=== PATIENT | female | born 1980 | race Native Hawaiian/Other Pacific Islander ===

== ENCOUNTER 2022-04-16 14:58 | Emergency (ER) | payer OTHER ==
[~2022-04-16] VITALS: Ht 160 cm; Wt 141.5 kg
[~2022-04-16 14:58] MED LIST: AEROECLIPSE II1 EACH MC; ALBU90OI INH; ALBU90OI61 INH; AZIT250 PO; BUDE10.22; Citalopram HBr40 MG PO; DELTASONE20 MG PO; DILT120 PO; HYDACE5 PO; LORA1 PO; MEDR10 PO; Mucinex1200 MG PO; NAPR500 PO; PRED10 PO; Prednisone20 MG PO; Ventolin Soln3 ML INH; Zithromax250 MG PO
[2022-04-16] MEDS ORDERED: OXYCODONE-ACET1 EAC3 PO (16:04)
[2022-04-16] MEDS ORDERED: WIXELA 250-501 EAC1 INH (16:05)
[2022-04-16] MEDS ORDERED: IBUP800 PO (16:13)
[2022-04-16] MEDS ORDERED: BUDESONIDE-FO10.2 G3 INH (16:13)
[2022-04-16] MEDS ORDERED: VITAMIN D5000 UNIT PO (16:14)
[2022-04-16] MEDS ORDERED: DOCU100 PO (16:15)
[2022-04-16] MEDS ORDERED: DULERA 100 MCG/13 GM INH (16:15)
[2022-04-16] MEDS ORDERED: OLANZAPINE-FLU1 EAC8 PO (16:16)
[2022-04-16] MEDS ORDERED: MONT10T PO (16:16)
[2022-04-16 16:30] LABS: BASOPHILS ABSOLUTE AUTO 0.04 K/mm3 (0.00-0.23); BASOPHILS PERCENT AUTO 0 % (0-2); EOSINOPHILS PERCENT AUTO 1 % (0-6); Hematocrit 34.5 % (33.0-51.0); Hemoglobin 11.4 g/dL (11.5-16.0); IMMATURE GRAN ABSOLUTE AUTO 0.04 K/mm3 (0.00-0.10); IMMATURE GRAN PERCENT AUTO 0 % (0-1); LYMPHOCYTES ABSOLUTE AUTO 3.15 K/mm3 (0.84-5.20); LYMPHOCYTES PERCENT AUTO 26 % (21-46); MONOCYTES ABSOLUTE AUTO 1.27 K/mm3 (0.16-1.47); MONOCYTES PERCENT AUTO 11 % (4-13); Mean Corpuscular HGB 31.8 pg (26.0-34.0); Mean Corpuscular Volume 96 fL (80-100); Mean Platelet Volume 9.4 fL (9.1-12.4); NEUTROPHILS ABSOLUTE AUTO 7.46 K/mm3 (1.96-9.15); NEUTROPHILS PERCENT AUTO 62 % (41-73); Platelet Count 338 K/mm3 (150-400); RDW Coefficient Variation 12.2 % (11.7-14.2); RDW Standard Deviation 43.1 fL (35.1-46.3); Red Blood Cell Count 3.58 M/mm3 (3.80-5.20); White Blood Cell Count 12.06 K/mm3 (4.00-11.30)
[2022-04-16 16:38] LABS: Bun/Creatinine Ratio 14.2 (12.0-20.0); Calcium, Blood 9.2 mg/dL (8.5-10.1); Creatinine, Blood 1.27 mg/dL (0.40-1.00); Potassium, Blood 3.7 mmol/L (3.5-5.5)
== END 2022-04-16 18:35 | disposition short-term general hospital (02) ==
LOC: ER 14:58
PROVIDERS: Family Medicine
DX: L76.22 Postprocedural hemorrhage of skin and subcutaneous tissue following other procedure (principal); Z79.51 Long term (current) use of inhaled steroids; Z79.899 Other long term (current) drug therapy; J45.909 Unspecified asthma, uncomplicated; Z87.891 Personal history of nicotine dependence; Z90.13 Acquired absence of bilateral breasts and nipples; Y83.8 Other surgical procedures as the cause of abnormal reaction of the patient, or of later complication, without mention of misadventure at the time of the procedure
CPT/HCPCS: 36415; 80048; 85025; A9270

== ENCOUNTER 2022-05-09 08:00 | Day surgery (SDC) | payer OTHER ==
[~2022-05-09 08:00] MED LIST changes: +BUDESONIDE-FO10.2 G3 INH; +DOCU100 PO; +DULERA 100 MCG/13 GM INH; +IBUP800 PO; +MONT10T PO; +OLANZAPINE-FLU1 EAC8 PO; +OXYCODONE-ACET1 EAC3 PO; +VITAMIN D5000 UNIT PO; +WIXELA 250-501 EAC1 INH
== END 2022-05-09 23:59 | disposition home or self-care (01) ==
LOC: WOUND 08:00
DX: T81.31XA Disruption of external operation (surgical) wound, not elsewhere classified, initial encounter (principal); C50.912 Malignant neoplasm of unspecified site of left female breast; Z87.891 Personal history of nicotine dependence
CPT/HCPCS: A9270; G0463

== ENCOUNTER 2022-05-11 04:40 | Day surgery (SDC) | payer OTHER | END 2022-05-11 23:09 | disposition home or self-care (01) | LOC: WOUND 04:40 | DX: S21.109A Unspecified open wound of unspecified front wall of thorax without penetration into thoracic cavity, initial encounter (principal); X58.XXXA Exposure to other specified factors, initial encounter; S21.002D Unspecified open wound of left breast, subsequent encounter; X58.XXXD Exposure to other specified factors, subsequent encounter; T81.31XD Disruption of external operation (surgical) wound, not elsewhere classified, subsequent encounter ==

== ENCOUNTER 2022-05-13 01:40 | Day surgery (SDC) | payer OTHER | END 2022-05-13 22:57 | disposition home or self-care (01) | LOC: WOUND 01:40 | DX: S91.109A Unspecified open wound of unspecified toe(s) without damage to nail, initial encounter (principal); X58.XXXA Exposure to other specified factors, initial encounter; S21.002D Unspecified open wound of left breast, subsequent encounter; X58.XXXD Exposure to other specified factors, subsequent encounter; T81.30XD Disruption of wound, unspecified, subsequent encounter | CPT/HCPCS: A9270 ==

== ENCOUNTER 2022-05-18 01:21 | Day surgery (SDC) | payer OTHER | END 2022-05-18 22:43 | disposition home or self-care (01) | LOC: WOUND 01:21 | DX: S21.102A Unspecified open wound of left front wall of thorax without penetration into thoracic cavity, initial encounter (principal); X58.XXXA Exposure to other specified factors, initial encounter; S21.002D Unspecified open wound of left breast, subsequent encounter; X58.XXXD Exposure to other specified factors, subsequent encounter; T81.31XD Disruption of external operation (surgical) wound, not elsewhere classified, subsequent encounter | CPT/HCPCS: A9270 ==

== ENCOUNTER 2022-05-20 00:43 | Day surgery (SDC) | payer OTHER | END 2022-05-20 22:46 | disposition home or self-care (01) | LOC: WOUND 00:43 | DX: S21.109A Unspecified open wound of unspecified front wall of thorax without penetration into thoracic cavity, initial encounter (principal); X58.XXXA Exposure to other specified factors, initial encounter; S21.002D Unspecified open wound of left breast, subsequent encounter; X58.XXXD Exposure to other specified factors, subsequent encounter; T81.31XD Disruption of external operation (surgical) wound, not elsewhere classified, subsequent encounter | CPT/HCPCS: A9270 ==

== ENCOUNTER 2022-05-23 02:47 | Day surgery (SDC) | payer OTHER | END 2022-05-23 23:28 | disposition home or self-care (01) | LOC: WOUND 02:47 | DX: T81.31XD Disruption of external operation (surgical) wound, not elsewhere classified, subsequent encounter (principal); S21.002D Unspecified open wound of left breast, subsequent encounter; S21.109A Unspecified open wound of unspecified front wall of thorax without penetration into thoracic cavity, initial encounter | CPT/HCPCS: A9270 ==

== ENCOUNTER 2022-05-25 01:31 | Day surgery (SDC) | payer OTHER | END 2022-05-25 22:45 | disposition home or self-care (01) | LOC: WOUND 01:31 | DX: T81.31XA Disruption of external operation (surgical) wound, not elsewhere classified, initial encounter (principal); S21.102A Unspecified open wound of left front wall of thorax without penetration into thoracic cavity, initial encounter; X58.XXXA Exposure to other specified factors, initial encounter; S21.002D Unspecified open wound of left breast, subsequent encounter; X58.XXXD Exposure to other specified factors, subsequent encounter; Z85.3 Personal history of malignant neoplasm of breast | CPT/HCPCS: A9270 ==

== ENCOUNTER 2022-05-27 03:43 | Day surgery (SDC) | payer OTHER | END 2022-05-27 23:01 | disposition home or self-care (01) | LOC: WOUND 03:43 | DX: S21.109A Unspecified open wound of unspecified front wall of thorax without penetration into thoracic cavity, initial encounter (principal); X58.XXXA Exposure to other specified factors, initial encounter; S21.002D Unspecified open wound of left breast, subsequent encounter; X58.XXXD Exposure to other specified factors, subsequent encounter; T81.31XD Disruption of external operation (surgical) wound, not elsewhere classified, subsequent encounter ==

== ENCOUNTER 2022-05-31 01:01 | Day surgery (SDC) | payer OTHER | END 2022-05-31 23:00 | disposition home or self-care (01) | LOC: WOUND 01:01 | DX: S21.102A Unspecified open wound of left front wall of thorax without penetration into thoracic cavity, initial encounter (principal); X58.XXXA Exposure to other specified factors, initial encounter; S21.002D Unspecified open wound of left breast, subsequent encounter; T81.31XD Disruption of external operation (surgical) wound, not elsewhere classified, subsequent encounter; X58.XXXD Exposure to other specified factors, subsequent encounter | CPT/HCPCS: A9270; G0463 ==

== ENCOUNTER 2022-06-03 01:05 | Day surgery (SDC) | payer OTHER | END 2022-06-03 23:05 | disposition home or self-care (01) | LOC: WOUND 01:05 | DX: S21.109A Unspecified open wound of unspecified front wall of thorax without penetration into thoracic cavity, initial encounter (principal); X58.XXXA Exposure to other specified factors, initial encounter; S21.002D Unspecified open wound of left breast, subsequent encounter; X58.XXXD Exposure to other specified factors, subsequent encounter; T81.31XD Disruption of external operation (surgical) wound, not elsewhere classified, subsequent encounter | CPT/HCPCS: G0463 ==

== ENCOUNTER 2022-06-06 00:45 | Day surgery (SDC) | payer OTHER | END 2022-06-06 23:08 | disposition home or self-care (01) | LOC: WOUND 00:45 | DX: T81.31XA Disruption of external operation (surgical) wound, not elsewhere classified, initial encounter (principal); S21.002A Unspecified open wound of left breast, initial encounter; S21.102A Unspecified open wound of left front wall of thorax without penetration into thoracic cavity, initial encounter; Z90.12 Acquired absence of left breast and nipple | CPT/HCPCS: A9270; G0463 ==

== ENCOUNTER 2022-06-08 04:23 | Day surgery (SDC) | payer OTHER | END 2022-06-08 23:47 | disposition home or self-care (01) | LOC: WOUND 04:23 | DX: S21.109A Unspecified open wound of unspecified front wall of thorax without penetration into thoracic cavity, initial encounter (principal); T81.31XD Disruption of external operation (surgical) wound, not elsewhere classified, subsequent encounter; S21.002D Unspecified open wound of left breast, subsequent encounter | CPT/HCPCS: G0463 ==

== ENCOUNTER 2022-06-13 05:48 | Day surgery (SDC) | payer OTHER | END 2022-06-13 23:35 | disposition home or self-care (01) | LOC: WOUND 05:48 | DX: S21.109A Unspecified open wound of unspecified front wall of thorax without penetration into thoracic cavity, initial encounter (principal); X58.XXXA Exposure to other specified factors, initial encounter; S21.002D Unspecified open wound of left breast, subsequent encounter; X58.XXXD Exposure to other specified factors, subsequent encounter; T81.31XD Disruption of external operation (surgical) wound, not elsewhere classified, subsequent encounter | CPT/HCPCS: G0463 ==

== ENCOUNTER 2022-06-16 01:37 | Day surgery (SDC) | payer OTHER | END 2022-06-17 23:35 | disposition home or self-care (01) | LOC: WOUND 01:37 | DX: T81.31XD Disruption of external operation (surgical) wound, not elsewhere classified, subsequent encounter (principal); S21.109A Unspecified open wound of unspecified front wall of thorax without penetration into thoracic cavity, initial encounter; X58.XXXA Exposure to other specified factors, initial encounter; S21.002D Unspecified open wound of left breast, subsequent encounter; X58.XXXD Exposure to other specified factors, subsequent encounter | CPT/HCPCS: A9270 ==

== ENCOUNTER 2022-06-24 01:34 | Day surgery (SDC) | payer OTHER | END 2022-06-24 23:02 | disposition home or self-care (01) | LOC: WOUND 01:34 | DX: S21.109A Unspecified open wound of unspecified front wall of thorax without penetration into thoracic cavity, initial encounter (principal); X58.XXXA Exposure to other specified factors, initial encounter; S21.002D Unspecified open wound of left breast, subsequent encounter; X58.XXXD Exposure to other specified factors, subsequent encounter; T81.31XD Disruption of external operation (surgical) wound, not elsewhere classified, subsequent encounter | CPT/HCPCS: A9270; G0463 ==

== ENCOUNTER 2022-07-19 04:17 | Day surgery (SDC) | payer OTHER | END 2022-07-19 23:23 | disposition home or self-care (01) | LOC: WOUND 04:17 | PROC: 0J5 Subcutaneous Tissue and Fascia, Destruction (ICD-10-PCS; principal; 2022-07-19) | DX: T81.31XA Disruption of external operation (surgical) wound, not elsewhere classified, initial encounter (principal); C50.912 Malignant neoplasm of unspecified site of left female breast; Z79.899 Other long term (current) drug therapy; Y83.8 Other surgical procedures as the cause of abnormal reaction of the patient, or of later complication, without mention of misadventure at the time of the procedure | CPT/HCPCS: A9270 ==

== ENCOUNTER 2022-08-02 01:52 | Day surgery (SDC) | payer OTHER | END 2022-08-02 23:43 | disposition home or self-care (01) | LOC: WOUND 01:52 | DX: T81.31XD Disruption of external operation (surgical) wound, not elsewhere classified, subsequent encounter (principal); S21.002D Unspecified open wound of left breast, subsequent encounter; S21.109D Unspecified open wound of unspecified front wall of thorax without penetration into thoracic cavity, subsequent encounter; X58.XXXD Exposure to other specified factors, subsequent encounter | CPT/HCPCS: G0463 ==